=== PATIENT | female | born 1980 | race Caucasian/White ===

== ENCOUNTER 2022-08-07 18:24 | Emergency (ER) | payer OTHER ==
[2022-08-07 18:41] VITALS: BP 118/75; PULSE 80; RESP 18; BMI 25.4
[2022-08-07] MEDS ORDERED: ONDANSETRON *ODT* 4 MG TABLET SL ONE (20:11)
[2022-08-07] MEDS ORDERED: ACETAMINOPHEN 500 MG TABLET (FP) PO ONE (20:11)
[2022-08-07] MEDS ORDERED: ONDANSETRON *ODT* 4 MG TABLET ONE (20:15)
[2022-08-07] MEDS ORDERED: ACETAMINOPHEN 500 MG TABLET (FP) ONE (20:15)
[2022-08-07] MEDS ORDERED: LIDOCAINE 5% TOPICAL PATCH TP ONE (20:24)
[2022-08-07] MEDS ORDERED: LIDOCAINE 5% TOPICAL PATCH ONE (20:26)
[2022-08-07] MEDS ORDERED: CYCLOBENZAPRINE HCL 10 MG TABLET (FP) PO ONE (21:03)
[2022-08-07] MEDS ORDERED: CYCLOBENZAPRINE HCL 10 MG TABLET (FP) ONE (21:05)
[2022-08-07] MEDS ORDERED: LIDOCAINE PATCH REMOVAL MC SCH (22:00)
== END 2022-08-07 21:07 | disposition home or self-care (01) ==
LOC: JER 18:24
DX: R51.9 Headache, unspecified (principal); M54.50 Low back pain, unspecified; V73.5XXA Driver of bus injured in collision with car, pick-up truck or van in traffic accident, initial encounter
CPT/HCPCS: 70450-TC; 72100-TC-FY; 72125-TC; 99285-25; Q0162